=== PATIENT | male | born 1975 | race Caucasian/White ===

== ENCOUNTER 2021-06-26 22:41 | Emergency (ER) | payer SELFPAY ==
[~2021-06-26] VITALS: Ht 182.9 cm; Wt 124.7 kg
== END 2021-06-27 00:17 | disposition home or self-care (01) ==
LOC: ER 22:55
DX: H57.11 Ocular pain, right eye (principal)
CPT/HCPCS: 99283

== ENCOUNTER → 2021-07-04 | Outpatient (CLI) | payer OTHER ==
[~2021-07-04] MED LIST: GADOBENATE DIMEGLUMINE 1 ML IV ONE
== END ==
LOC: MRI 12:25
PROVIDERS: ATTEND Ophthalmology
DX: H46.11 Retrobulbar neuritis, right eye (principal)
CPT/HCPCS: 70543; 70553; A9577